=== PATIENT | male | born 1950 | race Caucasian/White ===

== ENCOUNTER 2020-05-01 16:44 | Emergency (ER) | payer MEDICARE, MEDICAID, SELFPAY ==
[2020-05-01] VITALS (9 sets, daily range): BP systolic 99–126; BP diastolic 58–78; PULSE 107–138; RESP 16–28; TEMP 36.6; O2SAT 90–100
--- NOTE | 2020-05-01 17:04 | DI.RAD.S_ITS ---
PROCEDURE: XR ABDOMEN 1V INDICATIONS: constipation TECHNIQUE: One view of the abdomen acquired. COMPARISON: None. FINDINGS: Surgical changes and devices: None. Bowel: Moderate colonic stool is present compatible with constipation the. No dilated small bowel loops to suggest obstruction. Soft tissues: The visualized lung bases demonstrate a partially visualized left pleural effusion and associated left basilar opacities. There are diffuse vascular calcifications. Bones: No suspicious bony lesions. IMPRESSION: 1. Moderate colonic stool distention compatible with history of constipation. No definite bowel obstruction. 2. Partially visualized left pleural effusion and left basilar consolidation or atelectasis. Dictated by: Melo Rae M.D. on 05/01/2020 at 18:28 Approved by: Melo Rae M.D. on 05/01/2020 at 18:31
--- NOTE | 2020-05-01 17:06 | ED.ABDPAIN ---
HPI - Abdominal Pain <JACQUES Leslie - Last Filed: 05/01/20 20:33> General Chief Complaint: Abdominal Pain Stated Complaint: Constipation 2 days Time Seen by Provider: 05/01/20 16:57 Source: patient and EMS Mode of arrival: EMS Limitations: no limitations History of Present Illness HPI narrative: 69-year-old male with a history of colorectal cancer that he says has resolved, currently on dialysis, uses chronic daily oxygen intermittently, and takes chronic narcotic therapy, presents to the emergency department for constipation over the past 2 days. He states his last bowel movement was approximately 3 days ago and it was small. He is having some anal pain that started about 2 days ago. Patient states it feels like he has been constipated. He denies any fevers, chills, chest pain, abdominal pain, nausea, vomiting, diarrhea, or any other concerns. Patient states he had dialysis today, he had his COVID-19 shot yesterday. Related Data Allergies Allergy/AdvReac Type Severity Reaction Status Date / Time Sulfa (Sulfonamide Allergy Verified 05/01/20 16:59 Antibiotics) Review of Systems <JACQUES Leslie - Last Filed: 05/01/20 20:33> Review of Systems Narrative: REVIEW OF SYSTEMS: GENERAL: Denies fever. HENT: No head trauma. CARDIOVASCULAR: No chest pain. RESPIRATORY: No shortness of breath or cough. GASTROINTESTINAL: Complains of constipation, denies abdominal pain, nausea, or diarrhea, see HPI. MUSCULOSKELETAL: No pain, weakness, or trauma. INTEGUMENTARY: No rash or lesions. NEURO: No numbness or tingling. PSYCH: No behavior or mood changes. Patient History <JACQUES Leslie - Last Filed: 05/01/20 20:33> Medical History Dialysis patient Social History Smoking Status: Former smoker Smoking Status: Former smoker alcohol intake frequency: 0-2 drinks per day Substance Use Type: does not use Exam <JACQUES Leslie - Last Filed: 05/01/20 20:33> Initial Vital Signs Initial Vital Signs: Vital Signs Temperature 97.8 F 05/01/20 16:54 Pulse Rate 107 H 03/18/21 16:54 Respiratory Rate 16 05/01/20 16:54 Blood Pressure 99/58 L 05/01/20 16:54 Pulse Oximetry 100 05/01/20 16:54 PHYSICAL EXAMINATION: GENERAL: Awake alert, poor historian. HENT: Normocephalic, atraumatic. Ear canals patent. Oral mucosa is pink and moist. EYES: Conjunctiva pink, sclera white, no periorbital swelling. CHEST: Normal to inspection and without deformities. CARDIOVASCULAR: S1 and S2 sounds normal. Regular irregular rhythm, (patient has a history of AFib), no murmurs, clicks, or bruits. No pedal edema. RESPIRATORY: Normal respiratory rate, trachea midline, airway patent. No stridor, nasal flaring or accessory muscle use. Lungs are clear in all gandhi without wheeze, rhonchi, or crackles. No cough. Patient on 2L NC which is patient's norm. GASTROINTESTINAL: Bowel sounds normoactive. Abdomen is soft and non-tender. No organomegaly. RECTAL: Rectal exam was performed with Breanna MATUTE at bedside. Patient had tenderness to anus. Rectal tone intact, no hemorrhoids palpated, small amount of soft stool removed. MUSCULOSKELETAL: Normal gait and coordination. Equal tone and mass bilaterally. EXTREMITIES: CMS intact. Moves all extremities. SKIN: Warm, dry, soft, appropriate color for ethnicity. No lesions, rashes, or wounds. NEURO: Alert and Oriented X 3. Good coordination. PSYCH: Appropriate affect and mood. <Donovan Mack MD - Last Filed: 05/02/20 00:24> Initial Vital Signs Initial Vital Signs: Vital Signs Temperature 97.8 F 05/01/20 16:54 Pulse Rate 107 H 05/01/20 16:54 Respiratory Rate 16 05/01/20 16:54 Blood Pressure 99/58 L 05/01/20 16:54 Pulse Oximetry 100 05/01/20 16:54 Course <JACQUES Leslie - Last Filed: 05/01/20 20:33> Course Course Narrative: Initially, patient had AFib with a rate of 107-120 intermittently. Patient reports he takes chronic pain meds. 1900: Patient reported he is getting agitated, wants to go home. States that is on this time 1st pain medication. Hydrocodone was ordered. He states ?I do not like hospitals and want to get out of here. Patient updated on plan of care, at this point his heart rate had elevated to 120-130s. Patient was medicated & plan was to reassess heart rate. I discussed plan for treating constipation. 1958: At this point I discussed with patient, his elevated heart rate. Patient yelling I want to go home NOW! Refusing other interventions. Discussed with patient to return for any new or worsening symptoms. Patient called [facility] was discharged via nursing. Orders Ordered: ED Orders 05/01/20 17:02 EKG-12 Lead Stat 05/01/20 17:04 XR abdomen 1V Stat 05/01/20 17:35 Complete Blood Count AUTO DIFF Stat Comprehensive Metabolic Panel Stat Lipase Stat 05/01/20 18:45 XR chest 1V Stat Discontinued Medications Sodium Chloride (Normal Saline 0.9%) 1,000 mls @ 150 mls/hr IV CONT JOSÉ MIGUEL Last Infusion: 05/01/20 19:59 Dose: 150 mls/hr Documented by: Admin: 05/01/20 17:57 Dose: 150 mls/hr Documented by: OSCAR Magnesium Citrate (Magnesium Citrate 300 Ml Solution) 150 ml PO NOW ONE Stop: 05/01/20 19:12 Last Admin: 05/01/20 19:45 Dose: 150 ml Documented by: OSCAR Oxycodone HCl (Oxycodone Ir 5 Mg Tablet) 5 mg PO NOW ONE Stop: 05/01/20 19:12 Last Admin: 05/01/20 19:16 Dose: 5 mg Documented by: BRENDA Consultations Consultation #1: Patient staffed with Dr. Mack, discussed patient's history, test, test results, plan of care. Vital Signs Vital signs: Vital Signs - 8 hr 05/01/20 16:54 05/01/20 17:24 05/01/20 17:33 Temperature 97.8 F Pulse Rate 107 H 113 H 138 H Respiratory Rate 16 25 H Blood Pressure 99/58 L Pulse Oximetry 100 98 05/01/20 17:55 05/01/20 18:03 05/01/20 18:04 Temperature Pulse Rate 117 H 125 H Respiratory Rate 22 28 H Blood Pressure 110/68 Pulse Oximetry 97 96 05/01/20 18:30 05/01/20 19:00 05/01/20 19:30 Temperature Pulse Rate 114 H 135 H 138 H Respiratory Rate 16 26 H 24 Blood Pressure 111/60 106/70 126/78 Pulse Oximetry 93 90 L 97 <Donovan Mack MD - Last Filed: 05/02/20 00:24> Orders Ordered: ED Orders 05/01/20 17:02 EKG-12 Lead Stat 05/01/20 17:04 XR abdomen 1V Stat 05/01/20 17:35 Complete Blood Count AUTO DIFF Stat Comprehensive Metabolic Panel Stat Lipase Stat 05/01/20 18:45 XR chest 1V Stat Discontinued Medications Sodium Chloride (Normal Saline 0.9%) 1,000 mls @ 150 mls/hr IV CONT JOSÉ MIGUEL Last Infusion: 05/01/20 19:59 Dose: 150 mls/hr Documented by: Admin: 05/01/20 17:57 Dose: 150 mls/hr Documented by: OSCAR Magnesium Citrate (Magnesium Citrate 300 Ml Solution) 150 ml PO NOW ONE Stop: 05/01/20 19:12 Last Admin: 05/01/20 19:45 Dose: 150 ml Documented by: OSCAR Oxycodone HCl (Oxycodone Ir 5 Mg Tablet) 5 mg PO NOW ONE Stop: 05/01/20 19:12 Last Admin: 05/01/20 19:16 Dose: 5 mg Documented by: BRENDA Vital Signs Vital signs: Vital Signs - 8 hr 05/01/20 16:54 05/01/20 17:24 05/01/20 17:33 Temperature 97.8 F Pulse Rate 107 H 113 H 138 H Respiratory Rate 16 25 H Blood Pressure 99/58 L Pulse Oximetry 100 98 05/01/20 17:55 05/01/20 18:03 05/01/20 18:04 Temperature Pulse Rate 117 H 125 H Respiratory Rate 22 28 H Blood Pressure 110/68 Pulse Oximetry 97 96 05/01/20 18:30 05/01/20 19:00 05/01/20 19:30 Temperature Pulse Rate 114 H 135 H 138 H Respiratory Rate 16 26 H 24 Blood Pressure 111/60 106/70 126/78 Pulse Oximetry 93 90 L 97 MDM - Abdominal Pain <JACQUES Leslie - Last Filed: 05/01/20 20:33> Medical Records Attestation: I reviewed the patient's medical records. Lab Data Attestation: I reviewed the patient's lab results. Result diagrams: 05/01/20 17:35 05/01/20 17:35 Labs: Lab Results 05/01/20 05/01/20 Range/Units 17:35 17:35 WBC 12.6 H (4.5-11.0) X10^3/uL RBC 3.61 L (4.5-5.9) X10^6/uL Hgb 11.6 L (13.5-17.5) g/dL Hct 35.6 L (41-53) % MCV 98.7 (80-100) fL MCH 32.2 (26-34) PG MCHC 32.6 (30-36) % RDW 17.2 H (11.6-14.8) % Plt Count 270 (150-400) X10^3/uL Neut % (Auto) 87.8 H (50-75) % Lymph % (Auto) 4.2 L (25-40) % [place] % (Auto) 6.6 (3-14) % Eos % (Auto) 0.6 L (2-4) % Baso % (Auto) 0.8 (0-2) % Neut # (Auto) 34456 H (8732-0934) /uL Lymph # (Auto) 500 L (6406-6954) /uL [place] # (Auto) 800 (0-900) /uL Eos # (Auto) 100 (0-450) /uL Baso # (Auto) 100 (0-100) /uL Sodium 136 L (137-145) mmol/L Potassium 5.0 (3.4-5.1) mmol/L Chloride 93 L (98-107) mmol/L Carbon Dioxide 31 (22-32) mmol/L BUN 20 (9-20) mg/dL Creatinine 3.54 H (0.66-1.25) mg/dL Estimated GFR 17.3 L (>60) mL/min BUN/Creatinine Ratio 5.6 L (6-22) Glucose 93 (80-110) mg/dL Calcium 9.7 (8.4-10.2) mg/dL Total Bilirubin 1.2 (0.2-1.3) mg/dL AST 29 (17-59) IU/L ALT 19 (<50) IU/L Alkaline Phosphatase 142 H (38-126) U/L Total Protein 8.0 (6.3-8.2) g/dL Albumin 4.3 (3.5-5.0) g/dL Globulin 3.7 (1.7-4.1) g/dL Albumin/Globulin Ratio 1.2 (1.0-2.8) Lipase 47 (23-300) U/L Imaging Data Chest x-ray: Radiologist's Impression: [address] [id number] ReportSigned Patient: Mike Shaver#: [id number]: 2Acct:[id number]/Sex: 69 / MDate of Service: 05/01/20Loc: EDAccession Number: [id number] Procedure: XR chest 1V Ordering Provider: Ankita Subramanian PROCEDURE: XR CHEST 1V INDICATIONS: Possible effusion seen in Abd Xray TECHNIQUE: One view of the chest was acquired. COMPARISON: [facility], , XR ABDOMEN 1V, 05/01/2020, 17:51. FINDINGS: Surgical changes and devices: None. Lungs and pleura: There is a small to moderate left pleural effusion with left basilar opacities consistent with compressive atelectasis or consolidation. Pulmonary vascular prominence is demonstrated consistent with edema. There are right suprahilar opacities suggestive of consolidation versus a pulmonary nodule. Mediastinum: Mediastinal contours appear normal. Heart size is enlarged. Bones and chest wall: No suspicious bony lesions. Overlying soft tissues appear unremarkable. IMPRESSION: 1. Right suprahilar opacity compatible with consolidation versus a pulmonary nodule. Recommend short-term follow-up to demonstrate resolution or further evaluation with CT if clinically indicated. 2. Small to moderate left pleural effusion with left basilar compressive atelectasis or consolidation. 3. Cardiomegaly and pulmonary edema suggestive of congestive heart failure. Dictated by: Melo Rae M.D. on 05/01/2020 at 20:15 Approved by: Melo Rae M.D. on 05/01/2020 at 20:17 Abdominal x-ray: Radiologist's Impression: [address] [id number] ReportSigned Patient: Mike Shaver#: [id number]: 2Acct:[id number]/Sex: 69 / MDate of Service: 05/01/20Loc: EDAccession Number: [id number] Procedure: XR abdomen 1V Ordering Provider: Ankita Subramanian PROCEDURE: XR ABDOMEN 1V INDICATIONS: constipation TECHNIQUE: One view of the abdomen acquired. COMPARISON: None. FINDINGS: Surgical changes and devices: None. Bowel: Moderate colonic stool is present compatible with constipation the. No dilated small bowel loops to suggest obstruction. Soft tissues: The visualized lung bases demonstrate a partially visualized left pleural effusion and associated left basilar opacities. There are diffuse vascular calcifications. Bones: No suspicious bony lesions. IMPRESSION: 1. Moderate colonic stool distention compatible with history of constipation. No definite bowel obstruction. 2. Partially visualized left pleural effusion and left basilar consolidation or atelectasis. Dictated by: Melo Rae M.D. on 05/01/2020 at 18:28 Approved by: Melo Rae M.D. on 05/01/2020 at 18:31 ECG Data Interpretation: 1706: Atrial fib, rate 121, QTC 485. No ST elevation or ST depression. No T-wave abnormality. EKG also viewed Dr. orellana per protocol. [facility] Narrative Medical decision making narrative: 69-year-old male with history of colorectal cancer, on chronic oxygen, and currently dialysis patient, presents to the emergency department for constipation. He states his last bowel movement was 2 days ago. X-ray shows moderate constipation. Rectal exam without large impaction, hemorrhoids, or bleeding. Laboratory work was ordered due to initial elevated heart rate, patient has a history of AFib. Recently had dialysis today and COVID vaccination yesterday. Slightly elevated white count, may be due to recent vaccination. Discussed creatinine and GFR with Dr. Mack, appears consistent with a dialysis patient. Attempted to obtain records from [facility], unable to do so before patient demanded discharge. Chest x-ray was ordered due to some consolidation seen on abdominal x-ray. Patient denies any worsening shortness of breath, cough, fever, or any signs of illness. There is some obesity on the x-ray which is concerning for consolidation versus pulmonary nodule. Given lack of other concerning symptoms such as fever, shortness of breath, or cough, most likely pulmonary nodule. Pleural effusions were noted. Patient has heart rate did start increased sores in the stay, he became agitated and started yelling at staff. He demanded discharge and refused other interventions. Return precautions were given. <Donovan Mack MD - Last Filed: 05/02/20 00:24> Lab Data Labs: Lab Results 05/01/20 05/01/20 Range/Units 17:35 17:35 WBC 12.6 H (4.5-11.0) X10^3/uL RBC 3.61 L (4.5-5.9) X10^6/uL Hgb 11.6 L (13.5-17.5) g/dL Hct 35.6 L (41-53) % MCV 98.7 (80-100) fL MCH 32.2 (26-34) PG MCHC 32.6 (30-36) % RDW 17.2 H (11.6-14.8) % Plt Count 270 (150-400) X10^3/uL Neut % (Auto) 87.8 H (50-75) % Lymph % (Auto) 4.2 L (25-40) % [place] % (Auto) 6.6 (3-14) % Eos % (Auto) 0.6 L (2-4) % Baso % (Auto) 0.8 (0-2) % Neut # (Auto) 93676 H (7181-8708) /uL Lymph # (Auto) 500 L (9375-2616) /uL [place] # (Auto) 800 (0-900) /uL Eos # (Auto) 100 (0-450) /uL Baso # (Auto) 100 (0-100) /uL Sodium 136 L (137-145) mmol/L Potassium 5.0 (3.4-5.1) mmol/L Chloride 93 L (98-107) mmol/L Carbon Dioxide 31 (22-32) mmol/L BUN 20 (9-20) mg/dL Creatinine 3.54 H (0.66-1.25) mg/dL Estimated GFR 17.3 L (>60) mL/min BUN/Creatinine Ratio 5.6 L (6-22) Glucose 93 (80-110) mg/dL Calcium 9.7 (8.4-10.2) mg/dL Total Bilirubin 1.2 (0.2-1.3) mg/dL AST 29 (17-59) IU/L ALT 19 (<50) IU/L Alkaline Phosphatase 142 H (38-126) U/L Total Protein 8.0 (6.3-8.2) g/dL Albumin 4.3 (3.5-5.0) g/dL Globulin 3.7 (1.7-4.1) g/dL Albumin/Globulin Ratio 1.2 (1.0-2.8) Lipase 47 (23-300) U/L Discharge Plan Departure Patient Disposition: Home Clinical Impression: Constipation Qualifiers: Constipation type: unspecified constipation type Qualified Code(s): K59.00 - Constipation, unspecified Instructions: DI for Constipation Activity Restrictions/Additional Instructions: Thank you for entrusting me with your care today. As discussed, your x-ray shows moderate constipation, I have sent to home with magnesium citrate. I recommend continuing to take stool softeners 1 to 3 times a day, for the next 2-3 days take MiraLax (1 capfull) for the next 3-4 days can be purchased [id number]. Return emergency department for any new or worsening symptoms such as severe pain, uncontrollable vomiting, high fevers, or any other concerns.
[2020-05-01 17:48] LABS: Add Manual Diff / Slide Review NO; Basophils Absolute Auto 100 /uL (0-100); Basophils Percent Auto 0.8 % (0-2); Eosinophils Absolute Auto 100 /uL (0-450); Eosinophils Percent Auto 0.6 % (2-4); Hematocrit 35.6 % (41-53); Hemoglobin 11.6 g/dL (13.5-17.5); Lymphocytes Absolute Auto 500 /uL (1100-4500); Lymphocytes Percent Auto 4.2 % (25-40); Mean Corpuscular HGB Conc 32.6 % (30-36); Mean Corpuscular Hemoglobin 32.2 PG (26-34); Mean Corpuscular Volume 98.7 fL (80-100); Monocytes Absolute Auto 800 /uL (0-900); Monocytes Percent Auto 6.6 % (3-14); Neutrophils Absolute Auto 11100 /uL (1500-7000); Neutrophils Percent Auto 87.8 % (50-75); Platelet Count 270 X10^3/uL (150-400); Red Blood Cell Count 3.61 X10^6/uL (4.5-5.9); Red Cell Distribution Width 17.2 % (11.6-14.8); White Blood Cell Count 12.6 X10^3/uL (4.5-11.0)
[2020-05-01] MEDS: SODIUM CHLORIDE 0.9% 1,000 ML 150 ML IV (17:57)
[2020-05-01 18:02] LABS: Alanine Aminotransferase 19 IU/L (<50); Albumin 4.3 g/dL (3.5-5.0); Albumin Globulin Ratio 1.2 (1.0-2.8); Alkaline Phosphatase 142 U/L (38-126); Aspartate Aminotransferase 29 IU/L (17-59); BUN Creatinine Ratio 5.6 (6-22); Bilirubin Total 1.2 mg/dL (0.2-1.3); Blood Urea Nitrogen 20 mg/dL (9-20); Calcium 9.7 mg/dL (8.4-10.2); Carbon Dioxide 31 mmol/L (22-32); Chloride 93 mmol/L (98-107); Estimated Glomerular Filt Rate 17.3 mL/min (>60); Globulin 3.7 g/dL (1.7-4.1); Glucose 93 mg/dL (80-110); HEMOLYSIS 47 (0-50); Lipase 47 U/L (23-300); Sodium 136 mmol/L (137-145)
--- NOTE | 2020-05-01 18:45 | DI.RAD.S_ITS ---
PROCEDURE: XR CHEST 1V INDICATIONS: Possible effusion seen in Abd Xray TECHNIQUE: One view of the chest was acquired. COMPARISON: [facility], CR, XR ABDOMEN 1V, 05/01/2020, 17:51. FINDINGS: Surgical changes and devices: None. Lungs and pleura: There is a small to moderate left pleural effusion with left basilar opacities consistent with compressive atelectasis or consolidation. Pulmonary vascular prominence is demonstrated consistent with edema. There are right suprahilar opacities suggestive of consolidation versus a pulmonary nodule. Mediastinum: Mediastinal contours appear normal. Heart size is enlarged. Bones and chest wall: No suspicious bony lesions. Overlying soft tissues appear unremarkable. IMPRESSION: 1. Right suprahilar opacity compatible with consolidation versus a pulmonary nodule. Recommend short-term follow-up to demonstrate resolution or further evaluation with CT if clinically indicated. 2. Small to moderate left pleural effusion with left basilar compressive atelectasis or consolidation. 3. Cardiomegaly and pulmonary edema suggestive of congestive heart failure. Dictated by: Melo Rae M.D. on 05/01/2020 at 20:15 Approved by: Melo Rae M.D. on 05/01/2020 at 20:17
[2020-05-01] MEDS: OXYCODONE IR 5 MG TABLET PO (19:16)
[2020-05-01] MEDS: MAGNESIUM CITRATE 300 ML SOLUTION 150 ML PO (19:45)
--- NOTE | 2020-05-01 19:59 | PC.NURSE ---
Patient demanding to be discharged. my heart rate is up because I want to go home. I hate being in hospitals
== END 2020-05-01 20:01 | disposition home or self-care (01) ==
PROVIDERS: Emergency Provider Nurse Practitioner
DX: K59.00 Constipation, unspecified (principal); Z99.2 Dependence on renal dialysis; I48.91 Unspecified atrial fibrillation
CPT/HCPCS: 36415; 71045; 74018; 80053; 83690; 85025; 93005; 93010; 96360; 96361; 99284